=== PATIENT | female | born 1940 | race Caucasian/White ===

== ENCOUNTER 2018-06-09 00:06 | Emergency (ER) | payer MEDICARE ==
[~2018-06-09] VITALS: Ht 157.5 cm; Wt 76.8 kg
[2018-06-09 00:07] VITALS: Ht 157.5 cm; Wt 76.8 kg
[2018-06-09] MEDS ORDERED: METOPROLOL TART25 MG PO (00:10)
[2018-06-09 00:47] LABS: BASOPHILS 0.6 % (0-2); EOSINOPHILS 4.4 % (0-7); HEMATOCRIT 38.1 % (36.0-48.0); HEMOGLOBIN 12.7 g/dL (12-16); IMMATURE GRANULOCYTES 0.2 % (0-5); LYMPHOCYTES 36.5 % (15-50); MCH 28.8 pg (26.0-34.0); MCHC 33.3 g/dL (31.0-37.0); MCV 86.4 fL (80.0-100.0); MEAN PLATELET VOLUME 9.3 fL (7.4-10.4); MONOCYTES 6.5 % (2-11); NEUTROPHILS 51.8 % (40-80); PLATELET COUNT 206 10x3/uL (130-400); RBC 4.41 10x6/uL (4.00-5.40); RDW 12.8 % (11.5-14.5); WBC 6.2 10x3/uL (4.8-10.8)
[2018-06-09 00:58] LABS: ALBUMIN 3.4 g/dL (3.4-5.0); ALKALINE PHOSPHATASE 107 U/L (46-116); ALT (SGPT) 11 U/L (10-68); BILIRUBIN - TOTAL 0.49 mg/dL (0.2-1.3); CALC OSMOLALITY 282 mosm/kg (275-300); CALCIUM 8.9 mg/dL (8.5-10.1); CARBON DIOXIDE 29.9 mmol/L (21.0-32.0); CHLORIDE - SERUM 104 mmol/L (98-107); GLUCOSE 115 mg/dL (74-106); POTASSIUM - SERUM 3.4 mmol/L (3.5-5.1); PROTEIN - SERUM 7.2 g/dL (6.4-8.2); SODIUM 141 mmol/L (136-145); UREA NITROGEN 16 mg/dL (7-18); eGFR NON AFRICAN AMERICAN 57 mL/min (90-120)
[2018-06-09 01:12] LABS: CKMB 1.5 U/L (0.0-3.6); CREATINE KINASE 39 UL (21-215)
[2018-06-09 01:13] LABS: TROPONIN-I < 0.017 ng/mL (0.000-0.060)
[2018-06-09 01:14] LABS: AMYLASE - SERUM 53 U/L (25-115); LIPASE 176 U/L (73-393)
[2018-06-09 01:21] LABS: APPEARANCE HAZY (CLEAR); BILIRUBIN NEGATIVE (NEGATIVE); COLOR STRAW (YELLOW); GLUCOSE NEGATIVE (NEGATIVE); KETONE SMALL mg/dL (NEGATIVE); NITRITE NEGATIVE (NEGATIVE); PROTEIN TRACE mg/dL (NEGATIVE); SPECIFIC GRAVITY 1.025 (1.005-1.020); UROBILINOGEN NORMAL (NORMAL)
[2018-06-09 01:22] LABS: BACTERIA NONE SEEN /hpf (NONE SEEN); CALCIUM OXALATE CRYSTALS 25-50 /hpf (NONE SEEN); EPITHELIAL CELLS RARE /hpf (0-5)
[2018-06-09] MEDS ORDERED: ZOFRAN4 MG PO (02:10)
[2018-06-09] MEDS ORDERED: OMNICEF300 MG PO (02:10)
[2018-06-09 02:37] VITALS: BP 137/89
== END 2018-06-09 02:37 | disposition home or self-care (01) ==
LOC: D.ER 00:06
PROVIDERS: Family Medicine
DX: N39.0 Urinary tract infection, site not specified (principal); R61 Generalized hyperhidrosis; I10 Essential (primary) hypertension

== ENCOUNTER 2020-04-05 21:10 | Emergency (ER) | payer SELFPAY ==
[~2020-04-05] VITALS: Ht 157.5 cm; Wt 77.7 kg
[~2020-04-05 21:10] MED LIST: METOPROLOL TART25 MG PO; OMNICEF300 MG PO; ZOFRAN4 MG PO
[2020-04-05 21:29] VITALS: Ht 157.5 cm; Wt 77.7 kg
[2020-04-05 22:21] LABS: BILIRUBIN NEGATIVE (NEGATIVE); GLUCOSE NEGATIVE (NEGATIVE); KETONE NEGATIVE (NEGATIVE); NITRITE NEGATIVE (NEGATIVE); UROBILINOGEN NORMAL (NORMAL)
[2020-04-05 22:21] LABS: BASOPHILS 0.3 % (0-2); HEMATOCRIT 42.4 % (36.0-48.0); HEMOGLOBIN 13.6 g/dL (12-16); IMMATURE GRANULOCYTES 0.3 % (0-5); LYMPHOCYTES 31.2 % (15-50); MCH 28.3 pg (26.0-34.0); MCHC 32.1 g/dL (31.0-37.0); MCV 88.1 fL (80.0-100.0); MEAN PLATELET VOLUME 9.7 fL (7.4-10.4); MONOCYTES 7.1 % (2-11); NEUTROPHILS 56.1 % (40-80); PLATELET COUNT 231 10x3/uL (130-400); RBC 4.81 10x6/uL (4.00-5.40); RDW 13.4 % (11.5-14.5); WBC 7.1 10x3/uL (4.8-10.8)
[2020-04-05 22:25] LABS: CALC OSMOLALITY 275 mosm/kg (275-300); CALCIUM 9.6 mg/dL (8.5-10.1); CARBON DIOXIDE 28.7 mmol/L (21.0-32.0); CHLORIDE - SERUM 103 mmol/L (98-107); CREATININE - SERUM 1.2 mg/dL (0.6-1.3); GLUCOSE 111 mg/dL (74-106); POTASSIUM - SERUM 4.7 mmol/L (3.5-5.1); SODIUM 136 mmol/L (136-145); UREA NITROGEN 21 mg/dL (7-18); eGFR NON AFRICAN AMERICAN 46 mL/min (90-120)
[2020-04-05 22:25] LABS: UDS - AMPHET NEGATIVE QUAL (NEGATIVE); UDS - BARB NEGATIVE QUAL (NEGATIVE); UDS - BENZO NEGATIVE QUAL (NEGATIVE); UDS - COCAINE NEGATIVE QUAL (NEGATIVE); UDS - OPIATE NEGATIVE QUAL (NEGATIVE); UDS - PCP NEGATIVE QUAL (NEGATIVE); UDS - THC NEGATIVE QUAL (NEGATIVE)
[2020-04-05 22:41] LABS: ALBUMIN 3.8 g/dL (3.4-5.0); ALKALINE PHOSPHATASE 101 U/L (30-120); ALT (SGPT) 15 U/L (10-68); BILIRUBIN - TOTAL 0.45 mg/dL (0.2-1.3); CREATINE KINASE 71 UL (21-215); LIPASE 148 U/L (73-393); PRO BNP 413 pg/mL (0-450); PROTEIN - SERUM 7.7 g/dL (6.4-8.2); TROPONIN-I < 0.017 ng/mL (0.000-0.060)
[2020-04-05] MEDS ORDERED: KLONOPIN0.5 MG PO (23:37)
[2020-04-06] VITALS: BP 136/78
== END 2020-04-06 | disposition home or self-care (01) ==
LOC: D.ER 21:10
PROVIDERS: Emergency Medicine
DX: F41.9 Anxiety disorder, unspecified (principal); I10 Essential (primary) hypertension; Z86.73 Personal history of transient ischemic attack (TIA), and cerebral infarction without residual deficits; K30 Functional dyspepsia; R51 Headache

== ENCOUNTER → 2020-06-02 13:59 | Outpatient (CLI) | payer MEDICARE ==
[2020-04-05 21:29] VITALS: BMI 31.3
[~2020-06-02 13:59] MED LIST changes: +KLONOPIN0.5 MG PO
== END | disposition home or self-care (01) ==
LOC: D.HCCECHO 13:30
PROVIDERS: ATTEND Internal Medicine Cardiovascular Disease
DX: I10 Essential (primary) hypertension (principal)